=== PATIENT | male | born 1990 | race Caucasian/White ===

== ENCOUNTER 2017-07-19 10:08 | Emergency (ER) | payer SELFPAY ==
[2017-07-19] MEDS ORDERED: TORADOL PO (11:36)
[2017-07-19 11:39] VITALS: BP 128/68
== END 2017-07-19 11:40 | disposition home or self-care (01) | DRG 563 ==
LOC: ED 10:08
DX: S86.912A Strain of unspecified muscle(s) and tendon(s) at lower leg level, left leg, initial encounter (principal); X58.XXXA Exposure to other specified factors, initial encounter